=== PATIENT | male | born 1965 | race Caucasian/White ===

== ENCOUNTER 2024-07-26 07:35 | Outpatient (CLI) | payer BC, OTHER | END 2024-07-26 07:36 | disposition home or self-care (01) | LOC: MRI 07:35 | PROVIDERS: ATTEND Otolaryngology Plastic Surgery within the Head & Neck | DX: H90.3 Sensorineural hearing loss, bilateral (principal); R90.82 White matter disease, unspecified; H74.91 Unspecified disorder of right middle ear and mastoid; J34.9 Unspecified disorder of nose and nasal sinuses | CPT/HCPCS: 70553; 76376 ==